=== PATIENT | female | born 1965 | race Caucasian/White ===

== ENCOUNTER 2018-01-30 16:11 | Inpatient (IN) | payer OTHER ==
[2018-01-30 17:25] VITALS: BMI 37.8
--- NOTE | 2018-01-30 20:17 | HP ---
Admission [facility] Chief Complaint: Seeking admission to Rehab Allergies/Adverse Reactions: Allergies Allergy/AdvReac Type Severity Reaction Status Date / Time No Known Allergies Allergy Verified 01/30/18 19:13 History of Present Illness: 52 years old female with a history of cocaine dependence is seeking admission to detox. Patient has been to previous Rehab. at [facility] in 2017. She has medical history of DM type 2, asthma, hypercholesterolemia, arthritis, kidney stones, depression, Hep. C and she is PPD positive. Reports more than 10 suicide attempts, last in 2006. Denies suicidal and homicidal ideation at this time. Patient is on methadone 160mg tablet oral daily at [facility]. Dose is yet to be confirmed by the nurse. Exam Limitations: No Limitations - Ebola screening Have you traveled outside of the country in the last 21 days: No Have you had contact with anyone from an Ebola affected area: No Have you been sick,other than usual withdrawal symptoms: No Do you have a fever: No - Review of Systems Constitutional: No Symptoms Reported EENT: reports: No Symptoms Reported, Dental Problems (has no teeth), Other ( uses prescription eye glasses) Respiratory: reports: No Symptoms reported Cardiac: reports: No Symptoms Reported GI: reports: No Symptoms Reported : reports: No Symptoms Reported Musculoskeletal: reports: No Symptoms Reported Integumentary: reports: No Symptoms Reported Neuro: reports: No Symptoms reported Endocrine: reports: No Symptoms Reported Hematology: reports: No Symptoms Reported Psychiatric: reports: No Sypmtoms Reported, Mood/Affect Appropiate, Orientated x3 Other Systems: Reviewed and Negative Patient History - Patient Medical History Hx Anemia: No Hx Asthma: Yes (Albuterol and singulair) Hx Chronic Obstructive Pulmonary Disease (COPD): Yes (Not on medication) Hx Cancer: Yes (Anal Ca - Not on medication) Hx Cardiac Disorders: No Hx Congestive Heart Failure: No Hx Hypertension: No Hx Hypercholesterolemia: Yes (Lipitor) HX Cerebrovascular Accident: No Hx Seizures: No Hx Diabetes: Yes (Metformin) Hx Gastrointestinal Disorders: No Hx Liver Disease: Yes (Hep. C) Hx Genitourinary Disorders: No Hx Sexually Transmitted Disorders: No Hx Renal Disease (ESRD): No Hx Thyroid Disease: No Hx Human Immunodeficiency Virus (HIV): No (Negative 2017) Hx Hepatitis C: Yes (Not treated) Hx Depression: Yes (Not on medication) Hx Suicide Attempt: Yes (Attempted 10 times. Denies suicidal ideation at this time.) Hx Bipolar Disorder: Yes Hx Schizophrenia: No Other Medical History: arthritis - Celebrex - Patient Surgical History Past Surgical History: Yes Hx Neurologic Surgery: No Hx Cataract Extraction: No Hx Cardiac Surgery: No Hx Lung Surgery: No Hx Breast Surgery: No Hx Breast Biopsy: No Hx Abdominal Surgery: No Hx Appendectomy: No Hx Cholecystectomy: No Hx Genitourinary Surgery: No Hx Section: Yes (1998) Hx Orthopedic Surgery: No Hx Hysterectomy: No Anesthesia Reaction: No - PPD History Previous Implant?: No (PPD positive) PPD to be Administered?: No - Reproductive History Patient is a Female of Child Bearing Age (11 -55 yrs old): Yes LMP comment: 6 years ago Patient : No - Smoking Cessation Smoking history: Current every day smoker Have you smoked in the past 12 months: Yes Aproximately how many cigarettes per day: 5 Hx Chewing Tobacco Use: No Initiated information on smoking cessation: Yes 'Breaking Loose' booklet given: 01/30/18 Family Disease History - Family Disease History Family Disease History: Diabetes: Father (HIV + - ), Mother, CA: Mother , Other: Grandparent (GM - Ca of throat), Father Admission Physical Exam [facility] - Vital Signs Vital Signs: Vital Signs - 24 hr 01/30/18 17:22 Temperature 98.8 F Pulse Rate 76 Respiratory 18 Rate Blood Pressure 140/78 - Physical General Appearance: Yes: No Apparent Distress, Appropriately Dressed, Moderate Distress HEENTM: Yes: EOMI, Normal Voice, YESSY Respiratory: Yes: Lungs Clear, Normal Breath Sounds, No Respiratory Distress Neck: Yes: Supple Breast: Yes: Breast Exam Deferred Cardiology: Yes: Regular Rhythm, Regular Rate, S1, S2 Abdominal: Yes: Normal Bowel Sounds, Soft Genitourinary: Yes: Within Normal Limits Back: Yes: Normal Inspection Musculoskeletal: Yes: Within Normal Limits Extremities: Yes: Normal Inspection Neurological: Yes: Within Normal Limits, Alert, Normal Mood/Affect Integumentary: Yes: Warm Lymphatic: Yes: Within Normal Limits - Diagnostic (1) Cocaine dependence, uncomplicated Current Visit: Yes Status: Chronic (2) Diabetes Current Visit: Yes Status: Chronic Qualifiers: Diabetes mellitus type: type 2 Diabetes mellitus complication status: with other specified complication (3) Asthma Current Visit: Yes Status: Acute Qualifiers: Asthma persistence: unspecified (4) Hep C w/o coma, chronic Current Visit: Yes Status: Chronic (5) Depression Current Visit: Yes Status: Chronic Qualifiers: Depression Type: unspecified Qualified Code(s): F32.9 - Major depressive disorder, single episode, unspecified (6) Anal cancer Current Visit: Yes Status: Chronic (7) Hypercholesteremia Current Visit: Yes Status: Chronic Cleared for Admission [facility] - Detox or Rehab [facility] Level of Care: Observation Bed Claeared for Rehab Admission: Yes [facility] Breath Alcohol Content Breath Alcohol Content: 0 Urine Pregancy Test - Result Urine Test Results: Negative- NO Line Present Urine Drug Screen - Results Drug Screen Negative: No Urine Drug Screen Results: FRACISCO-Cocaine, MTD-Methadone, TCA-Tricyclic Antidepress Inpatient Rehab Admission - Initial Determination Are CD services needed?: Yes Free of communicable disease: Yes Not in need of hospitalization: Yes - Rehab Admission Criteria Previous failed treatment: Yes Poor recovery environment: Yes Comorbidities: Yes Lacks judgement: No Patient is meeting Inpatient Rehab admission criteria:: Yes
[2018-01-30] MEDS ORDERED: IBUPROFEN 400 MG TABLET (FP) PO PRN (20:47)
[2018-01-30] MEDS ORDERED: NICOTINE POLACRILEX 2 MG GUM BC PRN (20:47)
[2018-01-30] MEDS ORDERED: MENTHOL/PHENOL 1 EACH UD MM PRN (20:47)
[2018-01-30] MEDS ORDERED: MAGNESIUM HYDROX 2400MG/30ML ORAL SUSPENSION 30 ML CUP PO PRN (20:47)
[2018-01-30] MEDS ORDERED: MAGNESIUM CITRATE 300 ML BOTTLE PO PRN (20:47)
[2018-01-30] MEDS ORDERED: guaiFENesin/D-METHORPHAN HB 10 ML UNIT-DOSE CUPS PO PRN (20:47)
[2018-01-30] MEDS: MONTELUKAST NA 10 MG TABLET PO SCH (23:48)
[2018-01-30] MEDS: ATORVASTATIN CA 20 MG TABLET (FP) PO SCH (23:48)
[2018-01-30] MEDS: THIAMINE HCL 100 MG TABLET (FP) PO SCH (23:49)
[2018-01-30] MEDS: metFORMIN HCL 500 MG TABLET (FP) PO SCH (23:50)
[2018-01-30] MEDS: CELECOXIB 200 MG CAPSULE PO SCH (23:50)
[2018-01-31 02:19] LABS: URINE APPEARANCE CLOUDY; URINE BILIRUBIN NEGATIVE (<2.0 mg/dL); URINE COLOR YELLOW; URINE GLUCOSE (UA) NEGATIVE (NEGATIVE); URINE KETONE NEGATIVE (NEGATIVE); URINE NITRITE NEGATIVE (NEGATIVE); URINE UROBILINOGEN NEGATIVE mg/dL (0.2-1.0)
[2018-01-31 02:26] LABS: URINE LEUK ESTERASE 3+ (NEGATIVE); URINE PROTEIN 2+ (NEGATIVE)
[2018-01-31 02:30] LABS: EPI CELLS RARE /HPF (FEW); URINE BACTERIA RARE /hpf (NONE SEEN); URINE HYALINE CAST 7 /lpf; URINE MUCUS RARE
[2018-01-31] MEDS: metFORMIN HCL 500 MG TABLET (FP) PO SCH ×2 (06:54→16:48)
[2018-01-31] MEDS: ASPIRIN 81 MG CHEWABLE TABLETS PO SCH (10:24)
[2018-01-31] MEDS: METHADONE HCL 40 MG DISPERSABLE TABLET PO SCH (10:24)
[2018-01-31] MEDS: NICOTINE 14 MG/24 HOURS TOPICAL PATCH TD SCH (10:25)
[2018-01-31] MEDS: PRENATAL VITAMINS W/ FOLIC ACID TABLET (FP) PO SCH (10:25)
[2018-01-31 10:40] LABS: HEMATOCRIT 35.1 % (32.4-45.2); HEMOGLOBIN 11.6 GM/dL (10.7-15.3); MCH 30.4 pg (25.7-33.7); MEAN PLT VOLUME 8.9 fl (7.5-11.1); PLATELET COUNT 234 K/MM3 (134-434); RBC 3.82 M/mm3 (3.60-5.2); RDW 14.4 % (11.6-15.6); WHITE BLOOD COUNT 6.4 K/mm3 (4.0-10.0)
--- NOTE | 2018-01-31 10:41 | EKG ---
Test Reason : Blood Pressure : / mmHG Vent. Rate : 064 BPM Atrial Rate : 064 BPM P-R Int : 168 ms QRS Dur : 096 ms QT Int : 404 ms P-R-T Axes : 023 052 -88 degrees QTc Int : 416 ms NORMAL SINUS RHYTHM T WAVE ABNORMALITY, CONSIDER ANTEROLATERAL ISCHEMIA ABNORMAL ECG NO PREVIOUS ECGS AVAILABLE Confirmed by MD Jason, Lauri ([id number]) on 01/31/2018 10:40:30 AM Referred By: Confirmed By:Lauri Gomez MD
[2018-01-31 10:52] LABS: CHLORIDE 111 mmol/L (98-107); POTASSIUM 4.3 mmol/L (3.5-5.1); SODIUM 146 mmol/L (136-145)
[2018-01-31 10:59] LABS: ALBUMIN 3.8 g/dl (3.4-5.0); ALK PHOS 157 U/L (45-117); ANION GAP 10 (8-16); BILIRUBIN,TOTAL 0.1 mg/dL (0.2-1.0); BLOOD UREA NITROGEN 19 mg/dL (7-18); CALCIUM 9.6 mg/dL (8.5-10.1); CO2 25 mmol/L (21-32); CREATININE 1.6 mg/dL (0.55-1.02); GLUCOSE,RANDOM 95 mg/dL (74-106); SGOT/AST 18 U/L (15-37); SGPT/ALT 16 U/L (12-78); TOT PROT 7.6 g/dl (6.4-8.2)
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
[2018-01-31] MEDS: CELECOXIB 200 MG CAPSULE PO SCH ×2 (13:12→21:44)
[2018-01-31] MEDS: THIAMINE HCL 100 MG TABLET (FP) PO SCH (21:44)
[2018-01-31] MEDS: ATORVASTATIN CA 20 MG TABLET (FP) PO SCH (21:44)
[2018-01-31] MEDS: MONTELUKAST NA 10 MG TABLET PO SCH (21:44)
[2018-01-31] MEDS: SUVOREXANT 10 MG TABLET PO PRN (21:45)
[2018-02-01] MEDS: METHADONE HCL 40 MG DISPERSABLE TABLET PO SCH (06:39)
[2018-02-01] MEDS: metFORMIN HCL 500 MG TABLET (FP) PO SCH ×2 (06:40→17:04)
[2018-02-01] MEDS: PRENATAL VITAMINS W/ FOLIC ACID TABLET (FP) PO SCH (10:29)
[2018-02-01] MEDS: NICOTINE 14 MG/24 HOURS TOPICAL PATCH TD SCH (10:30)
[2018-02-01] MEDS: ARIPiprazole 5 MG TABLET (FP) PO SCH (10:30)
[2018-02-01] MEDS: CELECOXIB 200 MG CAPSULE PO SCH ×2 (10:30→21:39)
[2018-02-01] MEDS: ASPIRIN 81 MG CHEWABLE TABLETS PO SCH (10:30)
[2018-02-01] MEDS: SERTRALINE HCL 50 MG TABLET (FP) PO SCH (10:30)
--- NOTE | 2018-02-01 11:11 | PN ---
[facility] Progress Note Note: Patient requesting singulair to be given in the morning. Also c/o itchy, dry feet. Vital Signs Temperature 98.3 F 02/01/18 07:12 Pulse Rate 74 02/01/18 07:12 Respiratory Rate 18 02/01/18 07:12 Blood Pressure 137/83 02/01/18 07:12 O2 Sat by Pulse Oximetry (%) Laboratory Tests 01/30/18 01/30/18 01/31/18 20:00 23:50 06:53 WBC RBC Hgb Hct MCV MCH MCHC RDW Plt Count MPV Sodium Potassium Chloride Carbon Dioxide Anion Gap BUN Creatinine Creat Clearance w eGFR POC Glucometer 101 95 Random Glucose Calcium Total Bilirubin AST ALT Alkaline Phosphatase Total Protein Albumin Urine Color Yellow Urine Appearance Cloudy Urine pH 5.0 Ur Specific [place] 1.024 Urine Protein 2+ H Urine Glucose (UA) Negative Urine Ketones Negative Urine Blood 2+ H Urine Nitrite Negative Urine Bilirubin Negative Urine Urobilinogen Negative Ur Leukocyte Esterase 3+ H Urine WBC (Auto) 181 Urine RBC (Auto) 73 Ur Epithelial Cells Rare Urine Bacteria Rare Hyaline Casts 7 Urine Mucus Rare 01/31/18 01/31/18 01/31/18 07:00 07:00 16:49 WBC 6.4 RBC 3.82 Hgb 11.6 Hct 35.1 MCV 92.0 MCH 30.4 MCHC 33.0 RDW 14.4 Plt Count 234 MPV 8.9 Sodium 146 H Potassium 4.3 Chloride 111 H Carbon Dioxide 25 Anion Gap 10 BUN 19 H Creatinine 1.6 H Creat Clearance w eGFR 33.59 POC Glucometer 102 Random Glucose 95 Calcium 9.6 Total Bilirubin 0.1 L AST 18 ALT 16 Alkaline Phosphatase 157 H Total Protein 7.6 Albumin 3.8 Urine Color Urine Appearance Urine pH Ur Specific [place] Urine Protein Urine Glucose (UA) Urine Ketones Urine Blood Urine Nitrite Urine Bilirubin Urine Urobilinogen Ur Leukocyte Esterase Urine WBC (Auto) Urine RBC (Auto) Ur Epithelial Cells Urine Bacteria Hyaline Casts Urine Mucus 02/01/18 06:39 WBC RBC Hgb Hct MCV MCH MCHC RDW Plt Count MPV Sodium Potassium Chloride Carbon Dioxide Anion Gap BUN Creatinine Creat Clearance w eGFR POC Glucometer 82 Random Glucose Calcium Total Bilirubin AST ALT Alkaline Phosphatase Total Protein Albumin Urine Color Urine Appearance Urine pH Ur Specific [place] Urine Protein Urine Glucose (UA) Urine Ketones Urine Blood Urine Nitrite Urine Bilirubin Urine Urobilinogen Ur Leukocyte Esterase Urine WBC (Auto) Urine RBC (Auto) Ur Epithelial Cells Urine Bacteria Hyaline Casts Urine Mucus Obj: Bilateral feet with dry cracked heels, +onchomycosis of toes nails and redness between toes. No open areas. A/P: Fungal rash of feet Medication schedule change Will order clotrimazole 0.1% BID change singulair to be given in the morning continue to monitor clinically
[2018-02-01] MEDS: THIAMINE HCL 100 MG TABLET (FP) PO SCH (21:39)
[2018-02-01] MEDS: SUVOREXANT 10 MG TABLET PO PRN (21:39)
[2018-02-01] MEDS: ATORVASTATIN CA 20 MG TABLET (FP) PO SCH (21:39)
[2018-02-01] MEDS: CLOTRIMAZOLE 1% CREAM 15 GM TUBE TP SCH (21:40)
[2018-02-02] MEDS: METHADONE HCL 40 MG DISPERSABLE TABLET PO SCH (06:37)
[2018-02-02] MEDS: metFORMIN HCL 500 MG TABLET (FP) PO SCH ×2 (06:39→16:50)
[2018-02-02] MEDS: P-EPHED 60MG/TRIPROLIDI 2.5MG TABLET PO PRN (06:40)
[2018-02-02] MEDS ORDERED: PT OWN MED DRAWER 7, Y5N ONE ×2 (08:36→10:41)
[2018-02-02] MEDS: CELECOXIB 200 MG CAPSULE PO SCH ×2 (10:13→21:42)
[2018-02-02] MEDS: SERTRALINE HCL 50 MG TABLET (FP) PO SCH (10:13)
[2018-02-02] MEDS: ASPIRIN 81 MG CHEWABLE TABLETS PO SCH (10:13)
[2018-02-02] MEDS: PRENATAL VITAMINS W/ FOLIC ACID TABLET (FP) PO SCH (10:13)
[2018-02-02] MEDS: MONTELUKAST NA 10 MG TABLET PO SCH (10:13)
[2018-02-02] MEDS: ARIPiprazole 5 MG TABLET (FP) PO SCH (10:13)
[2018-02-02] MEDS: CLOTRIMAZOLE 1% CREAM 15 GM TUBE TP SCH ×2 (10:15→21:43)
[2018-02-02] MEDS: NICOTINE 14 MG/24 HOURS TOPICAL PATCH TD SCH (10:16)
[2018-02-02] MEDS: ATORVASTATIN CA 20 MG TABLET (FP) PO SCH (21:42)
[2018-02-02] MEDS: SUVOREXANT 10 MG TABLET PO PRN (21:42)
[2018-02-02] MEDS: THIAMINE HCL 100 MG TABLET (FP) PO SCH (21:43)
[2018-02-03] MEDS: P-EPHED 60MG/TRIPROLIDI 2.5MG TABLET PO PRN ×2 (05:37→21:43)
[2018-02-03] MEDS: METHADONE HCL 40 MG DISPERSABLE TABLET PO SCH (05:40)
[2018-02-03] MEDS: metFORMIN HCL 500 MG TABLET (FP) PO SCH ×2 (08:05→17:09)
[2018-02-03] MEDS ORDERED: PT OWN MED DRAWER 7, Y5N ONE ×2 (09:25→10:47)
[2018-02-03] MEDS: PRENATAL VITAMINS W/ FOLIC ACID TABLET (FP) PO SCH (10:45)
[2018-02-03] MEDS: SERTRALINE HCL 50 MG TABLET (FP) PO SCH (10:45)
[2018-02-03] MEDS: CELECOXIB 200 MG CAPSULE PO SCH ×2 (10:45→21:39)
[2018-02-03] MEDS: CLOTRIMAZOLE 1% CREAM 15 GM TUBE TP SCH ×2 (10:45→22:02)
[2018-02-03] MEDS: MONTELUKAST NA 10 MG TABLET PO SCH (10:45)
[2018-02-03] MEDS: ASPIRIN 81 MG CHEWABLE TABLETS PO SCH (10:45)
[2018-02-03] MEDS: NICOTINE 14 MG/24 HOURS TOPICAL PATCH TD SCH (10:46)
[2018-02-03] MEDS: ARIPiprazole 5 MG TABLET (FP) PO SCH (12:40)
[2018-02-03] MEDS: THIAMINE HCL 100 MG TABLET (FP) PO SCH (21:39)
[2018-02-03] MEDS: ATORVASTATIN CA 20 MG TABLET (FP) PO SCH (21:39)
[2018-02-03] MEDS: SUVOREXANT 10 MG TABLET PO PRN (21:42)
[2018-02-04] MEDS: P-EPHED 60MG/TRIPROLIDI 2.5MG TABLET PO PRN (06:30)
[2018-02-04] MEDS: metFORMIN HCL 500 MG TABLET (FP) PO SCH ×2 (06:30→16:56)
[2018-02-04] MEDS: METHADONE HCL 40 MG DISPERSABLE TABLET PO SCH (06:31)
[2018-02-04] MEDS ORDERED: PT OWN MED DRAWER 7, Y5N ONE (08:48)
[2018-02-04] MEDS: PRENATAL VITAMINS W/ FOLIC ACID TABLET (FP) PO SCH (10:21)
[2018-02-04] MEDS: SERTRALINE HCL 50 MG TABLET (FP) PO SCH (10:21)
[2018-02-04] MEDS: MONTELUKAST NA 10 MG TABLET PO SCH (10:21)
[2018-02-04] MEDS: CELECOXIB 200 MG CAPSULE PO SCH ×2 (10:21→21:48)
[2018-02-04] MEDS: ARIPiprazole 5 MG TABLET (FP) PO SCH (10:21)
[2018-02-04] MEDS: NICOTINE 14 MG/24 HOURS TOPICAL PATCH TD SCH (10:21)
[2018-02-04] MEDS: CLOTRIMAZOLE 1% CREAM 15 GM TUBE TP SCH ×2 (10:22→21:49)
[2018-02-04] MEDS: ASPIRIN 81 MG CHEWABLE TABLETS PO SCH (10:22)
[2018-02-04] MEDS: ACETAMINOPHEN 325 MG TABLET (FP) PO PRN (15:27)
[2018-02-04] MEDS: THIAMINE HCL 100 MG TABLET (FP) PO SCH (21:48)
[2018-02-04] MEDS: ATORVASTATIN CA 20 MG TABLET (FP) PO SCH (21:48)
[2018-02-04] MEDS: MELATONIN 5 MG TABLETS PO PRN (21:48)
[2018-02-05] MEDS: METHADONE HCL 40 MG DISPERSABLE TABLET PO SCH (06:28)
[2018-02-05] MEDS: metFORMIN HCL 500 MG TABLET (FP) PO SCH ×2 (06:29→16:55)
[2018-02-05] MEDS: P-EPHED 60MG/TRIPROLIDI 2.5MG TABLET PO PRN (06:30)
[2018-02-05] MEDS ORDERED: PT OWN MED DRAWER 7, Y5N ONE (08:31)
[2018-02-05] MEDS: ASPIRIN 81 MG CHEWABLE TABLETS PO SCH (10:05)
[2018-02-05] MEDS: NICOTINE 14 MG/24 HOURS TOPICAL PATCH TD SCH (10:06)
[2018-02-05] MEDS: CLOTRIMAZOLE 1% CREAM 15 GM TUBE TP SCH ×2 (10:06→22:02)
[2018-02-05] MEDS: SERTRALINE HCL 50 MG TABLET (FP) PO SCH (10:06)
[2018-02-05] MEDS: MONTELUKAST NA 10 MG TABLET PO SCH (10:06)
[2018-02-05] MEDS: CELECOXIB 200 MG CAPSULE PO SCH ×2 (10:06→22:01)
[2018-02-05] MEDS: PRENATAL VITAMINS W/ FOLIC ACID TABLET (FP) PO SCH (10:06)
[2018-02-05] MEDS: ARIPiprazole 5 MG TABLET (FP) PO SCH (10:06)
[2018-02-05] MEDS: MELATONIN 5 MG TABLETS PO PRN (22:01)
[2018-02-05] MEDS: ATORVASTATIN CA 20 MG TABLET (FP) PO SCH (22:01)
[2018-02-05] MEDS: THIAMINE HCL 100 MG TABLET (FP) PO SCH (22:01)
[2018-02-06] MEDS: metFORMIN HCL 500 MG TABLET (FP) PO SCH ×2 (06:12→17:02)
[2018-02-06] MEDS: METHADONE HCL 40 MG DISPERSABLE TABLET PO SCH (06:12)
[2018-02-06] MEDS ORDERED: PT OWN MED DRAWER 7, Y5N ONE (08:47)
[2018-02-06] MEDS: ASPIRIN 81 MG CHEWABLE TABLETS PO SCH (10:46)
[2018-02-06] MEDS: CELECOXIB 200 MG CAPSULE PO SCH ×2 (10:47→21:31)
[2018-02-06] MEDS: PRENATAL VITAMINS W/ FOLIC ACID TABLET (FP) PO SCH (10:47)
[2018-02-06] MEDS: SERTRALINE HCL 50 MG TABLET (FP) PO SCH (10:47)
[2018-02-06] MEDS: MONTELUKAST NA 10 MG TABLET PO SCH (10:47)
[2018-02-06] MEDS: ARIPiprazole 5 MG TABLET (FP) PO SCH (10:47)
[2018-02-06] MEDS: NICOTINE 14 MG/24 HOURS TOPICAL PATCH TD SCH (10:48)
[2018-02-06] MEDS: CLOTRIMAZOLE 1% CREAM 15 GM TUBE TP SCH ×2 (10:48→21:32)
--- NOTE | 2018-02-06 14:06 | PN ---
[facility] Progress Note Note: Patient present with complaint of occasional itching of skin and feet. States it happens more at night. Vital Signs Temperature 98.3 F 02/06/18 07:02 Pulse Rate 71 02/06/18 07:02 Respiratory Rate 16 02/06/18 07:02 Blood Pressure 129/78 02/06/18 07:02 O2 Sat by Pulse Oximetry (%) Laboratory Tests 01/30/18 01/30/18 01/31/18 20:00 23:50 06:53 WBC RBC Hgb Hct MCV MCH MCHC RDW Plt Count MPV Sodium Potassium Chloride Carbon Dioxide Anion Gap BUN Creatinine Creat Clearance w eGFR POC Glucometer 101 95 Random Glucose Calcium Total Bilirubin AST ALT Alkaline Phosphatase Total Protein Albumin Urine Color Yellow Urine Appearance Cloudy Urine pH 5.0 Ur Specific [place] 1.024 Urine Protein 2+ H Urine Glucose (UA) Negative Urine Ketones Negative Urine Blood 2+ H Urine Nitrite Negative Urine Bilirubin Negative Urine Urobilinogen Negative Ur Leukocyte Esterase 3+ H Urine WBC (Auto) 181 Urine RBC (Auto) 73 Ur Epithelial Cells Rare Urine Bacteria Rare Hyaline Casts 7 Urine Mucus Rare RPR Titer 01/31/18 01/31/18 01/31/18 07:00 07:00 07:00 WBC 6.4 RBC 3.82 Hgb 11.6 Hct 35.1 MCV 92.0 MCH 30.4 MCHC 33.0 RDW 14.4 Plt Count 234 MPV 8.9 Sodium 146 H Potassium 4.3 Chloride 111 H Carbon Dioxide 25 Anion Gap 10 BUN 19 H Creatinine 1.6 H Creat Clearance w eGFR 33.59 POC Glucometer Random Glucose 95 Calcium 9.6 Total Bilirubin 0.1 L AST 18 ALT 16 Alkaline Phosphatase 157 H Total Protein 7.6 Albumin 3.8 Urine Color Urine Appearance Urine pH Ur Specific [place] Urine Protein Urine Glucose (UA) Urine Ketones Urine Blood Urine Nitrite Urine Bilirubin Urine Urobilinogen Ur Leukocyte Esterase Urine WBC (Auto) Urine RBC (Auto) Ur Epithelial Cells Urine Bacteria Hyaline Casts Urine Mucus RPR Titer Nonreactive 01/31/18 02/01/18 02/01/18 16:49 06:39 17:04 WBC RBC Hgb Hct MCV MCH MCHC RDW Plt Count MPV Sodium Potassium Chloride Carbon Dioxide Anion Gap BUN Creatinine Creat Clearance w eGFR POC Glucometer 102 82 94 Random Glucose Calcium Total Bilirubin AST ALT Alkaline Phosphatase Total Protein Albumin Urine Color Urine Appearance Urine pH Ur Specific [place] Urine Protein Urine Glucose (UA) Urine Ketones Urine Blood Urine Nitrite Urine Bilirubin Urine Urobilinogen Ur Leukocyte Esterase Urine WBC (Auto) Urine RBC (Auto) Ur Epithelial Cells Urine Bacteria Hyaline Casts Urine Mucus RPR Titer 02/02/18 02/02/18 02/03/18 06:36 16:52 05:39 WBC RBC Hgb Hct MCV MCH MCHC RDW Plt Count MPV Sodium Potassium Chloride Carbon Dioxide Anion Gap BUN Creatinine Creat Clearance w eGFR POC Glucometer 81 73 83 Random Glucose Calcium Total Bilirubin AST ALT Alkaline Phosphatase Total Protein Albumin Urine Color Urine Appearance Urine pH Ur Specific [place] Urine Protein Urine Glucose (UA) Urine Ketones Urine Blood Urine Nitrite Urine Bilirubin Urine Urobilinogen Ur Leukocyte Esterase Urine WBC (Auto) Urine RBC (Auto) Ur Epithelial Cells Urine Bacteria Hyaline Casts Urine Mucus RPR Titer 02/03/18 02/04/18 02/04/18 17:08 06:28 16:57 WBC RBC Hgb Hct MCV MCH MCHC RDW Plt Count MPV Sodium Potassium Chloride Carbon Dioxide Anion Gap BUN Creatinine Creat Clearance w eGFR POC Glucometer 104 83 115 Random Glucose Calcium Total Bilirubin AST ALT Alkaline Phosphatase Total Protein Albumin Urine Color Urine Appearance Urine pH Ur Specific [place] Urine Protein Urine Glucose (UA) Urine Ketones Urine Blood Urine Nitrite Urine Bilirubin Urine Urobilinogen Ur Leukocyte Esterase Urine WBC (Auto) Urine RBC (Auto) Ur Epithelial Cells Urine Bacteria Hyaline Casts Urine Mucus RPR Titer 02/05/18 02/05/18 02/06/18 06:27 16:55 06:11 WBC RBC Hgb Hct MCV MCH MCHC RDW Plt Count MPV Sodium Potassium Chloride Carbon Dioxide Anion Gap BUN Creatinine Creat Clearance w eGFR POC Glucometer 76 106 94 Random Glucose Calcium Total Bilirubin AST ALT Alkaline Phosphatase Total Protein Albumin Urine Color Urine Appearance Urine pH Ur Specific [place] Urine Protein Urine Glucose (UA) Urine Ketones Urine Blood Urine Nitrite Urine Bilirubin Urine Urobilinogen Ur Leukocyte Esterase Urine WBC (Auto) Urine RBC (Auto) Ur Epithelial Cells Urine Bacteria Hyaline Casts Urine Mucus RPR Titer Obj: Alert and oriented x 3. Skin warm and dry. Intact. No visible rashes or lesions. A/P Pruritis Will order Vistaril Prn and continue to monitor clinically.
[2018-02-06] MEDS: THIAMINE HCL 100 MG TABLET (FP) PO SCH (21:31)
[2018-02-06] MEDS: ATORVASTATIN CA 20 MG TABLET (FP) PO SCH (21:31)
[2018-02-06] MEDS: P-EPHED 60MG/TRIPROLIDI 2.5MG TABLET PO PRN (21:32)
[2018-02-06] MEDS: MELATONIN 5 MG TABLETS PO PRN (21:32)
[2018-02-07] MEDS: METHADONE HCL 40 MG DISPERSABLE TABLET PO SCH (06:17)
[2018-02-07] MEDS: metFORMIN HCL 500 MG TABLET (FP) PO SCH ×2 (06:18→16:54)
[2018-02-07] MEDS ORDERED: PT OWN MED DRAWER 7, Y5N ONE (09:05)
[2018-02-07] MEDS: ASPIRIN 81 MG CHEWABLE TABLETS PO SCH (10:26)
[2018-02-07] MEDS: ARIPiprazole 5 MG TABLET (FP) PO SCH (10:27)
[2018-02-07] MEDS: CELECOXIB 200 MG CAPSULE PO SCH ×2 (10:27→21:31)
[2018-02-07] MEDS: MONTELUKAST NA 10 MG TABLET PO SCH (10:27)
[2018-02-07] MEDS: SERTRALINE HCL 50 MG TABLET (FP) PO SCH (10:27)
[2018-02-07] MEDS: PRENATAL VITAMINS W/ FOLIC ACID TABLET (FP) PO SCH (10:27)
[2018-02-07] MEDS: NICOTINE 14 MG/24 HOURS TOPICAL PATCH TD SCH (10:27)
[2018-02-07] MEDS: MAG HYDROX/AL HYDROX/SIMETH 30 ML UNIT-DOSE CUP PO PRN (10:28)
[2018-02-07] MEDS: CLOTRIMAZOLE 1% CREAM 15 GM TUBE TP SCH ×2 (10:48→21:37)
[2018-02-07] MEDS: hydrOXYzine PAMOATE 25 MG CAPSULE (FP) PO PRN ×2 (11:01→21:33)
[2018-02-07] MEDS ORDERED: RANITIDINE HCL 150 MG TABLET (FP) PO ONE (13:30)
--- NOTE | 2018-02-07 15:09 | PN ---
Psychiatric Progress Note Vital Signs: Vital Signs Period Temp Pulse Resp BP Sys/Mcnally Pulse Ox Last 24 Hr 98.0 F 78 16-18 116/72 Date of Session: 02/07/18 Chief Complaint:: "depressed" HPI: patient is addressing cocaine,nicotine dependence comorbid Bipolar I disorder and PTSD. ROS: bronchial asthma, hyperlipidemia, type 2 diabetes mellitus, arthritis, hepatitis C, PPD+ and history of kidney stones, anal cancer and surgery for c- section in 1998 Current Medications: Active Medications Generic Name Dose Route Start Last Admin Trade Name Freq PRN Reason Stop Dose Admin Acetaminophen 650 mg 01/30/18 20:47 02/04/18 15:27 Tylenol - PO 650 mg Q4H PRN Administration FEVER Al Hydroxide/Mg Hydroxide 30 ml 01/30/18 20:47 02/07/18 10:28 Mylanta Oral Suspension - PO 30 ml Q6H PRN Administration DYSPEPSIA Aripiprazole 5 mg 02/01/18 10:00 02/07/18 10:27 Abilify PO 5 mg DAILY RUEL Administration Aspirin 81 mg 01/31/18 10:00 02/07/18 10:26 Asa - PO 81 mg DAILY RUEL Administration Atorvastatin Calcium 20 mg 01/30/18 22:00 02/06/18 21:31 Lipitor - PO 20 mg HS RUEL Administration Celecoxib 200 mg 01/30/18 22:00 02/07/18 10:27 Celebrex - PO 200 mg BID RUEL Administration Clotrimazole 1 applic 02/01/18 22:00 02/07/18 10:48 Lotrimin 1% Cream - TP Not Given BID RUEL Eucalyptus/Menthol/Phenol/Sorbitol 1 each 01/30/18 20:47 Cepastat Lozenge - MM Q4H PRN SORE THROAT Guaifenesin 10 ml 01/30/18 20:47 Robitussin Dm - PO Q6H PRN COUGH Hydroxyzine Pamoate 25 mg 02/06/18 14:02 02/07/18 11:01 Vistaril - PO 25 mg Q4H PRN Administration FOR ITCHING Loperamide HCl 4 mg 01/30/18 20:47 Imodium - PO Q6H PRN DIARRHEA Magnesium Citrate 300 ml 01/30/18 20:47 Citroma - PO Q48H PRN CONSTIPATION Magnesium Hydroxide 30 ml 01/30/18 20:47 Milk Of Magnesia - PO DAILY PRN CONSTIPATION Melatonin 5 mg 01/30/18 22:00 02/06/18 21:32 Melatonin PO 5 mg HS PRN Administration INSOMNIA Metformin HCl 1,000 mg 01/30/18 21:00 02/07/18 06:18 Glucophage - PO 1,000 mg BIDAC RUEL Administration Methadone HCl 160 mg 02/08/18 06:00 Dolophine - PO DAILY@0600 RUEL Montelukast Sodium 10 mg 02/02/18 10:00 02/07/18 10:27 Singulair - PO 10 mg DAILY RUEL Administration Nicotine 14 mg 01/31/18 10:00 02/07/18 10:27 Nicoderm Patch - TD Not Given DAILY RUEL Nicotine Polacrilex 2 mg 01/30/18 20:47 Nicorette Gum - BC Q2H PRN NICOTINE REPLACEMENT RX Multivit/Folic Acid/Iron 1 tab 01/31/18 10:00 02/07/18 10:27 Vitamins (Sjr) - PO 1 tab DAILY RUEL Administration Pseudoephedrine/Triprolidine 1 combo 01/30/18 20:47 02/06/18 21:32 Actifed - PO 1 combo TID PRN Administration NASAL CONGESTION Ranitidine HCl 150 mg 02/08/18 10:00 Zantac - PO DAILY RUEL Sertraline HCl 100 mg 02/07/18 15:07 Zoloft - PO DAILY RUEL Thiamine HCl 100 mg 01/30/18 22:00 02/06/18 21:31 Vitamin B1 - PO 100 mg HS RUEL Administration Medication(s) Change(s): increase Zoloft 100 mg po hs and add Wellbutrin 100 mg po daily. Current Side Effect: No Lab tests ordered: No Lab tests reviewed: Yes Provider note:: Reviewed the shart met with the patient, 's admission note appreciated, patient reports has been feeling depressed, sad and loweneergy level, fatigued all days, denies suicidal and homicildal thoughts. Reviewed her current medications, will increase Zoloft 100 mg po am, add Wellbutrin 100 mg po daily(side-effects/benefits disucssed with the patient ), psychoeducations and supports provided, continue to monitor progress. Total face to face time:: 25 Mental Status Exam - Mental Status Exam Alert and Oriented to: Time, Place, Person Cognitive Function: Good Patient Appearance: Well Groomed Mood: Depressed, Sad Affect: Mood Congruent Patient Behavior: Appropriate, Cooperative Speech Pattern: Clear, Appropriate Voice Loudness: Normal Thought Process: Intact, Goal Oriented Thought Disorder: Not Present Hallucinations: Denies Suicidal Ideation: Denies Homicidal Ideation: Denies Insight/Judgement: Fair Sleep: Fair Appetite: Fair Muscle strength/Tone: Normal Gait/Station: Normal Psychiatric Treatment Plan - Problem List (1) Cocaine dependence Current Visit: Yes (2) Substance-induced sleep disorder Current Visit: Yes (3) Bipolar disorder Current Visit: Yes (4) Nicotine dependence Current Visit: Yes (5) PTSD (post-traumatic stress disorder) Current Visit: Yes
[2018-02-07] MEDS ORDERED: RANITIDINE HCL 150 MG TABLET (FP) PO SCH (17:00)
[2018-02-07] MEDS ORDERED: ONDANSETRON *ODT* 4 MG TABLET SL PRN (17:06)
--- NOTE | 2018-02-07 17:08 | PN ---
S Progress Note Note: Patient c/o nausea. Patient refuse to eat breakfast related from the nausea. Current BGM 58. Denies any other symptoms. Vital Signs Temperature 98.0 F 02/07/18 07:14 Pulse Rate 78 02/07/18 07:14 Respiratory Rate 16 02/07/18 07:14 Blood Pressure 116/72 02/07/18 07:14 O2 Sat by Pulse Oximetry (%) Plan: Zofran PRN Increase fluids Provide patient with orange juice repeat BGM in an hour Continue to monitor
[2018-02-07] MEDS: THIAMINE HCL 100 MG TABLET (FP) PO SCH (21:31)
[2018-02-07] MEDS: ATORVASTATIN CA 20 MG TABLET (FP) PO SCH (21:31)
[2018-02-07] MEDS: MELATONIN 5 MG TABLETS PO PRN (21:32)
[2018-02-08] MEDS: MAG HYDROX/AL HYDROX/SIMETH 30 ML UNIT-DOSE CUP PO PRN (00:51)
[2018-02-08] MEDS: LOPERAMIDE HCL 2 MG CAPSULE PO PRN ×2 (00:51→20:23)
[2018-02-08] MEDS: METHADONE HCL 40 MG DISPERSABLE TABLET PO SCH (06:31)
[2018-02-08] MEDS: P-EPHED 60MG/TRIPROLIDI 2.5MG TABLET PO PRN (06:32)
[2018-02-08] MEDS: metFORMIN HCL 500 MG TABLET (FP) PO SCH ×2 (06:32→16:56)
[2018-02-08] MEDS ORDERED: PT OWN MED DRAWER 7, Y5N ONE ×2 (08:45→10:29)
[2018-02-08] MEDS: MONTELUKAST NA 10 MG TABLET PO SCH (10:26)
[2018-02-08] MEDS: SERTRALINE HCL 50 MG TABLET (FP) PO SCH (10:26)
[2018-02-08] MEDS: CELECOXIB 200 MG CAPSULE PO SCH ×2 (10:26→21:27)
[2018-02-08] MEDS: ASPIRIN 81 MG CHEWABLE TABLETS PO SCH (10:26)
[2018-02-08] MEDS: RANITIDINE HCL 150 MG TABLET (FP) PO SCH (10:26)
[2018-02-08] MEDS: ARIPiprazole 5 MG TABLET (FP) PO SCH (10:27)
[2018-02-08] MEDS: buPROPion HCL 100 MG TABLET PO SCH (10:27)
[2018-02-08] MEDS: PRENATAL VITAMINS W/ FOLIC ACID TABLET (FP) PO SCH (10:28)
[2018-02-08] MEDS: NICOTINE 14 MG/24 HOURS TOPICAL PATCH TD SCH (10:28)
[2018-02-08] MEDS: CLOTRIMAZOLE 1% CREAM 15 GM TUBE TP SCH ×2 (10:28→21:28)
[2018-02-08 14:17] LABS: URINE APPEARANCE CLOUDY; URINE BILIRUBIN NEGATIVE (<2.0 mg/dL); URINE COLOR YELLOW; URINE GLUCOSE (UA) NEGATIVE (NEGATIVE); URINE KETONE NEGATIVE (NEGATIVE); URINE NITRITE NEGATIVE (NEGATIVE); URINE UROBILINOGEN NEGATIVE mg/dL (0.2-1.0)
[2018-02-08 14:40] LABS: URINE LEUK ESTERASE 2+ (NEGATIVE); URINE PROTEIN 1+ (NEGATIVE)
[2018-02-08 14:44] LABS: EPI CELLS RARE /HPF (FEW); URINE MUCUS RARE
[2018-02-08] MEDS: ATORVASTATIN CA 20 MG TABLET (FP) PO SCH (21:27)
[2018-02-08] MEDS: MELATONIN 5 MG TABLETS PO PRN (21:27)
[2018-02-08] MEDS: THIAMINE HCL 100 MG TABLET (FP) PO SCH (21:27)
[2018-02-09] MEDS: METHADONE HCL 40 MG DISPERSABLE TABLET PO SCH (06:25)
[2018-02-09] MEDS: P-EPHED 60MG/TRIPROLIDI 2.5MG TABLET PO PRN (06:26)
[2018-02-09] MEDS: metFORMIN HCL 500 MG TABLET (FP) PO SCH ×2 (06:27→17:06)
[2018-02-09] MEDS ORDERED: DIPHENOXYLATE 2.5/ATROPINE.025 1 COMBO TABLET PO ONE (07:31)
--- NOTE | 2018-02-09 07:34 | PN ---
S Progress Note Note: Patient reports diarrhea more than 5 times this morning. Lomotil oral combo ordered.
[2018-02-09] MEDS ORDERED: PT OWN MED DRAWER 7, Y5N ONE (09:09)
[2018-02-09] MEDS: buPROPion HCL 100 MG TABLET PO SCH (10:17)
[2018-02-09] MEDS: SERTRALINE HCL 50 MG TABLET (FP) PO SCH (10:17)
[2018-02-09] MEDS: RANITIDINE HCL 150 MG TABLET (FP) PO SCH (10:17)
[2018-02-09] MEDS: PRENATAL VITAMINS W/ FOLIC ACID TABLET (FP) PO SCH (10:17)
[2018-02-09] MEDS: NICOTINE 14 MG/24 HOURS TOPICAL PATCH TD SCH (10:17)
[2018-02-09] MEDS: ASPIRIN 81 MG CHEWABLE TABLETS PO SCH (10:17)
[2018-02-09] MEDS: CELECOXIB 200 MG CAPSULE PO SCH ×2 (10:17→21:37)
[2018-02-09] MEDS: MONTELUKAST NA 10 MG TABLET PO SCH (10:17)
[2018-02-09] MEDS: ARIPiprazole 5 MG TABLET (FP) PO SCH (10:17)
[2018-02-09] MEDS: CLOTRIMAZOLE 1% CREAM 15 GM TUBE TP SCH ×2 (10:18→21:38)
[2018-02-09] MEDS ORDERED: DIPHENOXYLATE 2.5/ATROPINE.025 1 COMBO TABLET PO PRN (13:34)
--- NOTE | 2018-02-09 13:35 | PN ---
[facility] Progress Note Note: Vital Signs Temperature 98.3 F 02/09/18 07:20 Pulse Rate 72 02/09/18 07:20 Respiratory Rate 18 02/09/18 07:20 Blood Pressure 144/80 02/09/18 07:20 O2 Sat by Pulse Oximetry (%) Laboratory Last Values WBC 6.4 K/mm3 (4.0-10.0) 01/31/18 07:00 RBC 3.82 M/mm3 (3.60-5.2) 01/31/18 07:00 Hgb 11.6 GM/dL (10.7-15.3) 01/31/18 07:00 Hct 35.1 % (32.4-45.2) 01/31/18 07:00 MCV 92.0 fl (80-96) 01/31/18 07:00 MCH 30.4 pg (25.7-33.7) 01/31/18 07:00 MCHC 33.0 g/dl (32.0-36.0) 01/31/18 07:00 RDW 14.4 % (11.6-15.6) 01/31/18 07:00 Plt Count 234 K/MM3 (134-434) 01/31/18 07:00 MPV 8.9 fl (7.5-11.1) 01/31/18 07:00 Sodium 146 mmol/L (136-145) H 01/31/18 07:00 Potassium 4.3 mmol/L (3.5-5.1) 01/31/18 07:00 Chloride 111 mmol/L (98-107) H 01/31/18 07:00 Carbon Dioxide 25 mmol/L (21-32) 01/31/18 07:00 Anion Gap 10 (8-16) 01/31/18 07:00 BUN 19 mg/dL (7-18) H 01/31/18 07:00 Creatinine 1.6 mg/dL (0.55-1.02) H 01/31/18 07:00 Creat Clearance w eGFR 33.59 (>60) 01/31/18 07:00 POC Glucometer 82 UNITS (80-120) 02/09/18 06:24 Random Glucose 95 mg/dL (74-106) 01/31/18 07:00 Calcium 9.6 mg/dL (8.5-10.1) 01/31/18 07:00 Total Bilirubin 0.1 mg/dL (0.2-1.0) L 01/31/18 07:00 AST 18 U/L (15-37) 01/31/18 07:00 ALT 16 U/L (12-78) 01/31/18 07:00 Alkaline Phosphatase 157 U/L (45-117) H 01/31/18 07:00 Total Protein 7.6 g/dl (6.4-8.2) 01/31/18 07:00 Albumin 3.8 g/dl (3.4-5.0) 01/31/18 07:00 Urine Color Yellow 02/08/18 11:00 Urine Appearance Cloudy 02/08/18 11:00 Urine pH 5.0 (5.0-8.0) 02/08/18 11:00 Ur Specific Milnor 1.020 (1.001-1.035) 02/08/18 11:00 Urine Protein 1+ (NEGATIVE) H 02/08/18 11:00 Urine Glucose (UA) Negative (NEGATIVE) 02/08/18 11:00 Urine Ketones Negative (NEGATIVE) 02/08/18 11:00 Urine Blood 2+ (NEGATIVE) H 02/08/18 11:00 Urine Nitrite Negative (NEGATIVE) 02/08/18 11:00 Urine Bilirubin Negative (<2.0 mg/dL) 02/08/18 11:00 Urine Urobilinogen Negative mg/dL (0.2-1.0) 02/08/18 11:00 Ur Leukocyte Esterase 2+ (NEGATIVE) H 02/08/18 11:00 Urine WBC (Auto) 155 /hpf (3-5) 02/08/18 11:00 Urine RBC (Auto) 43 /hpf (0-3) 02/08/18 11:00 Ur Epithelial Cells Rare /HPF (FEW) 02/08/18 11:00 Urine Bacteria Rare /hpf (NONE SEEN) 01/30/18 20:00 Hyaline Casts 7 /lpf 01/30/18 20:00 Urine Mucus Rare 02/08/18 11:00 RPR Titer Nonreactive (NONREACTIVE) 01/31/18 07:00 Patient c/o of watery diarrhea x 3 days with no relief with immodium. C/O of dry itchy skin. Denies CP, SOB, abdominal tenderness. Obj: Patient AOx3, in no apparent distress Normal HR and Rhythm Skin warm and dry. Ambulating within unit with rollator BS x 4, No tenderness, or guarding A/P: Will order one time lomotil [place] soap Eucerin Top Increase fluids continue to monitor clinically
[2018-02-09] MEDS: MINERAL OIL/PETROLAT/WATER TOPICAL CREAM 113 GM JAR TP SCH (14:00)
[2018-02-09] MEDS: THIAMINE HCL 100 MG TABLET (FP) PO SCH (21:37)
[2018-02-09] MEDS: ATORVASTATIN CA 20 MG TABLET (FP) PO SCH (21:37)
[2018-02-09] MEDS: MELATONIN 5 MG TABLETS PO PRN (21:37)
[2018-02-10] MEDS: METHADONE HCL 40 MG DISPERSABLE TABLET PO SCH (06:17)
[2018-02-10] MEDS: metFORMIN HCL 500 MG TABLET (FP) PO SCH ×2 (06:18→16:55)
[2018-02-10] MEDS ORDERED: PT OWN MED DRAWER 7, Y5N ONE ×2 (08:41→23:10)
[2018-02-10] MEDS: RANITIDINE HCL 150 MG TABLET (FP) PO SCH (10:28)
[2018-02-10] MEDS: PRENATAL VITAMINS W/ FOLIC ACID TABLET (FP) PO SCH (10:28)
[2018-02-10] MEDS: SERTRALINE HCL 50 MG TABLET (FP) PO SCH (10:29)
[2018-02-10] MEDS: MONTELUKAST NA 10 MG TABLET PO SCH (10:29)
[2018-02-10] MEDS: ASPIRIN 81 MG CHEWABLE TABLETS PO SCH (10:29)
[2018-02-10] MEDS: CELECOXIB 200 MG CAPSULE PO SCH ×2 (10:29→21:34)
[2018-02-10] MEDS: NICOTINE 14 MG/24 HOURS TOPICAL PATCH TD SCH (10:30)
[2018-02-10] MEDS: ARIPiprazole 5 MG TABLET (FP) PO SCH (10:30)
[2018-02-10] MEDS: buPROPion HCL 100 MG TABLET PO SCH (10:30)
[2018-02-10] MEDS: MINERAL OIL/PETROLAT/WATER TOPICAL CREAM 113 GM JAR TP SCH (10:30)
[2018-02-10] MEDS: CLOTRIMAZOLE 1% CREAM 15 GM TUBE TP SCH ×2 (11:24→21:35)
[2018-02-10] MEDS ORDERED: COLLOIDAL OATMEAL 1 BAR EACH TP PRN (11:42)
[2018-02-10] MEDS: MELATONIN 5 MG TABLETS PO PRN (21:34)
[2018-02-10] MEDS: THIAMINE HCL 100 MG TABLET (FP) PO SCH (21:34)
[2018-02-10] MEDS: ATORVASTATIN CA 20 MG TABLET (FP) PO SCH (21:34)
[2018-02-11] MEDS: ACETAMINOPHEN 325 MG TABLET (FP) PO PRN (01:53)
[2018-02-11] MEDS: METHADONE HCL 40 MG DISPERSABLE TABLET PO SCH (06:21)
[2018-02-11] MEDS: metFORMIN HCL 500 MG TABLET (FP) PO SCH ×2 (06:23→16:56)
[2018-02-11] MEDS: CELECOXIB 200 MG CAPSULE PO SCH ×2 (10:23→21:27)
[2018-02-11] MEDS: ASPIRIN 81 MG CHEWABLE TABLETS PO SCH (10:23)
[2018-02-11] MEDS: PRENATAL VITAMINS W/ FOLIC ACID TABLET (FP) PO SCH (10:23)
[2018-02-11] MEDS: NICOTINE 14 MG/24 HOURS TOPICAL PATCH TD SCH (10:23)
[2018-02-11] MEDS: buPROPion HCL 100 MG TABLET PO SCH (10:23)
[2018-02-11] MEDS: RANITIDINE HCL 150 MG TABLET (FP) PO SCH (10:24)
[2018-02-11] MEDS: MONTELUKAST NA 10 MG TABLET PO SCH (10:24)
[2018-02-11] MEDS: SERTRALINE HCL 50 MG TABLET (FP) PO SCH (10:24)
[2018-02-11] MEDS: ARIPiprazole 5 MG TABLET (FP) PO SCH (10:24)
[2018-02-11] MEDS: CLOTRIMAZOLE 1% CREAM 15 GM TUBE TP SCH ×2 (10:26→21:28)
[2018-02-11] MEDS: MINERAL OIL/PETROLAT/WATER TOPICAL CREAM 113 GM JAR TP SCH (10:26)
[2018-02-11] MEDS ORDERED: DIPHENOXYLATE 2.5/ATROPINE.025 1 COMBO TABLET PO PRN (12:51)
[2018-02-11] MEDS: ATORVASTATIN CA 20 MG TABLET (FP) PO SCH (21:27)
[2018-02-11] MEDS: THIAMINE HCL 100 MG TABLET (FP) PO SCH (21:28)
[2018-02-11] MEDS: MELATONIN 5 MG TABLETS PO PRN (21:28)
[2018-02-12] MEDS: metFORMIN HCL 500 MG TABLET (FP) PO SCH ×2 (06:14→16:52)
[2018-02-12] MEDS: METHADONE HCL 40 MG DISPERSABLE TABLET PO SCH (06:15)
[2018-02-12] MEDS: SERTRALINE HCL 50 MG TABLET (FP) PO SCH (10:17)
[2018-02-12] MEDS: RANITIDINE HCL 150 MG TABLET (FP) PO SCH (10:17)
[2018-02-12] MEDS: CELECOXIB 200 MG CAPSULE PO SCH ×2 (10:17→21:25)
[2018-02-12] MEDS: PRENATAL VITAMINS W/ FOLIC ACID TABLET (FP) PO SCH (10:17)
[2018-02-12] MEDS: buPROPion HCL 100 MG TABLET PO SCH (10:17)
[2018-02-12] MEDS: ASPIRIN 81 MG CHEWABLE TABLETS PO SCH (10:17)
[2018-02-12] MEDS: MONTELUKAST NA 10 MG TABLET PO SCH (10:17)
[2018-02-12] MEDS: ARIPiprazole 5 MG TABLET (FP) PO SCH (10:17)
[2018-02-12] MEDS: NICOTINE 14 MG/24 HOURS TOPICAL PATCH TD SCH (10:18)
[2018-02-12] MEDS: CLOTRIMAZOLE 1% CREAM 15 GM TUBE TP SCH ×2 (10:19→21:28)
[2018-02-12] MEDS: MINERAL OIL/PETROLAT/WATER TOPICAL CREAM 113 GM JAR TP SCH (10:19)
[2018-02-12] MEDS: ACETAMINOPHEN 325 MG TABLET (FP) PO PRN (16:52)
[2018-02-12] MEDS: hydrOXYzine PAMOATE 25 MG CAPSULE (FP) PO PRN (18:01)
--- NOTE | 2018-02-12 20:15 | PN ---
Psychiatric Progress Note Vital Signs: Vital Signs Period Temp Pulse Resp BP Sys/Mcnally Pulse Ox Last 24 Hr 97.9 F 76 18-18 145/80 Date of Session: 02/12/18 Chief Complaint:: Discharge Note HPI: Patient addressing Cocaine Dependence comorbid with Opioid Dependence on Agonost Therapy, Nicotine Dependence, Bipolar Disorder, PTSD, Substance-Induced Mood Disorder and Substance-Induced Sleep Disorder ROS: Asthma, Hep C, DM, HLD, Anal cancer Current Medications: Active Medications Generic Name Dose Route Start Last Admin Trade Name Freq PRN Reason Stop Dose Admin Acetaminophen 650 mg 01/30/18 20:47 02/12/18 16:52 Tylenol - PO 650 mg Q4H PRN Administration FEVER Al Hydroxide/Mg Hydroxide 30 ml 01/30/18 20:47 02/08/18 00:51 Mylanta Oral Suspension - PO 30 ml Q6H PRN Administration DYSPEPSIA Aripiprazole 5 mg 02/01/18 10:00 02/12/18 10:17 Abilify PO 5 mg DAILY RUEL Administration Aspirin 81 mg 01/31/18 10:00 02/12/18 10:17 Asa - PO 81 mg DAILY RUEL Administration Atorvastatin Calcium 20 mg 01/30/18 22:00 02/11/18 21:27 Lipitor - PO 20 mg HS RUEL Administration Bupropion HCl 100 mg 02/08/18 10:00 02/12/18 10:17 Wellbutrin - PO 100 mg DAILY RUEL Administration Celecoxib 200 mg 01/30/18 22:00 02/12/18 10:17 Celebrex - PO 200 mg BID RUEL Administration Clotrimazole 1 applic 02/01/18 22:00 02/12/18 10:19 Lotrimin 1% Cream - TP Not Given BID RUEL Colloidal Oatmeal 1 applic 02/10/18 11:42 02/10/18 15:54 Aveeno Soap - TP 1 bar DAILY PRN Administration HYGEINE Diphenoxylate HCl/Atropine 1 combo 02/11/18 12:51 Lomotil - PO 02/14/18 12:50 Q8H PRN DIARRHEA Eucalyptus/Menthol/Phenol/Sorbitol 1 each 01/30/18 20:47 Cepastat Lozenge - MM Q4H PRN SORE THROAT Guaifenesin 10 ml 01/30/18 20:47 Robitussin Dm - PO Q6H PRN COUGH Hydroxyzine Pamoate 25 mg 02/06/18 14:02 02/12/18 18:01 Vistaril - PO 25 mg Q4H PRN Administration FOR ITCHING Magnesium Citrate 300 ml 01/30/18 20:47 Citroma - PO Q48H PRN CONSTIPATION Magnesium Hydroxide 30 ml 01/30/18 20:47 Milk Of Magnesia - PO DAILY PRN CONSTIPATION Melatonin 5 mg 01/30/18 22:00 02/11/18 21:28 Melatonin PO 5 mg HS PRN Administration INSOMNIA Metformin HCl 1,000 mg 01/30/18 21:00 02/12/18 16:52 Glucophage - PO 1,000 mg BIDAC RUEL Administration Methadone HCl 160 mg 02/08/18 06:00 02/12/18 06:15 Dolophine - PO 160 mg DAILY@0600 RUEL Administration Montelukast Sodium 10 mg 02/02/18 10:00 02/12/18 10:17 Singulair - PO 10 mg DAILY RUEL Administration Multi-Ingredient Lotion 1 applic 02/09/18 13:45 02/12/18 10:19 Eucerin (Small Jar) - TP Not Given DAILY RUEL Nicotine 14 mg 01/31/18 10:00 02/12/18 10:18 Nicoderm Patch - TD Not Given DAILY RUEL Nicotine Polacrilex 2 mg 01/30/18 20:47 Nicorette Gum - BC Q2H PRN NICOTINE REPLACEMENT RX Ondansetron HCl 8 mg 02/07/18 17:06 02/07/18 17:37 Zofran Odt - SL 8 mg Q8H PRN Administration NAUSEA AND/OR VOMITING Multivit/Folic Acid/Iron 1 tab 01/31/18 10:00 02/12/18 10:17 Vitamins (Sjr) - PO 1 tab DAILY RUEL Administration Pseudoephedrine/Triprolidine 1 combo 01/30/18 20:47 02/09/18 06:26 Actifed - PO 1 combo TID PRN Administration NASAL CONGESTION Ranitidine HCl 150 mg 02/08/18 10:00 02/12/18 10:17 Zantac - PO 150 mg DAILY RUEL Administration Sertraline HCl 100 mg 02/07/18 15:07 02/12/18 10:17 Zoloft - PO 100 mg DAILY RUEL Administration Thiamine HCl 100 mg 01/30/18 22:00 02/11/18 21:28 Vitamin B1 - PO 100 mg HS RUEL Administration Current Side Effect: No Lab tests ordered: Yes Lab tests reviewed: Yes Provider note:: Patient will complete this program on 02/13/18. She has met her treatment goals and will continue to address her issues in outpatient at [facility]. 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 She responded well to Zoloft 100 mg po daily, Abilify 5 mg po daily and Wellbutrin 100 mg po daily. Scripts for 30 days supply of these medications will be electronically transmitted to Pharmacy at [address] [place] [address]. She is stable for discharge on 02/13/18 Total face to face time:: 35 Psychiatric Treatment Plan - Problem List (1) Cocaine dependence Current Visit: Yes (2) Nicotine dependence Current Visit: Yes (3) Bipolar disorder Current Visit: Yes (4) PTSD (post-traumatic stress disorder) Current Visit: Yes (5) Substance induced mood disorder Current Visit: Yes (6) Substance-induced sleep disorder Current Visit: Yes (7) Asthma Current Visit: Yes Qualifiers: Asthma persistence: unspecified (8) Anal cancer Current Visit: Yes (9) Diabetes Current Visit: Yes Qualifiers: Diabetes mellitus type: type 2 Diabetes mellitus complication status: with other specified complication (10) Hep C w/o coma, chronic Current Visit: Yes (11) Hypercholesteremia Current Visit: Yes Initial treatment plan: Patient will be discharged tomorrow and referred to [facility] for outpatient Treatment
[2018-02-12] MEDS: THIAMINE HCL 100 MG TABLET (FP) PO SCH (21:25)
[2018-02-12] MEDS: ATORVASTATIN CA 20 MG TABLET (FP) PO SCH (21:25)
[2018-02-12] MEDS: MELATONIN 5 MG TABLETS PO PRN (21:26)
[2018-02-13] MEDS: MAG HYDROX/AL HYDROX/SIMETH 30 ML UNIT-DOSE CUP PO PRN (05:18)
[2018-02-13] MEDS: METHADONE HCL 40 MG DISPERSABLE TABLET PO SCH (06:10)
[2018-02-13] MEDS: metFORMIN HCL 500 MG TABLET (FP) PO SCH (06:12)
[2018-02-13 07:07] VITALS: BP 143/81; PULSE 80; TEMP 98.6
[2018-02-13] MEDS ORDERED: PT OWN MED DRAWER 7, Y5N ONE (08:27)
[2018-02-13] MEDS: ASPIRIN 81 MG CHEWABLE TABLETS PO SCH (09:46)
[2018-02-13] MEDS: CLOTRIMAZOLE 1% CREAM 15 GM TUBE TP SCH (09:46)
[2018-02-13] MEDS: MINERAL OIL/PETROLAT/WATER TOPICAL CREAM 113 GM JAR TP SCH (09:46)
[2018-02-13] MEDS: ARIPiprazole 5 MG TABLET (FP) PO SCH (09:47)
[2018-02-13] MEDS: CELECOXIB 200 MG CAPSULE PO SCH (09:47)
[2018-02-13] MEDS: RANITIDINE HCL 150 MG TABLET (FP) PO SCH (09:47)
[2018-02-13] MEDS: SERTRALINE HCL 50 MG TABLET (FP) PO SCH (09:47)
[2018-02-13] MEDS: NICOTINE 14 MG/24 HOURS TOPICAL PATCH TD SCH (09:47)
[2018-02-13] MEDS: PRENATAL VITAMINS W/ FOLIC ACID TABLET (FP) PO SCH (09:47)
[2018-02-13] MEDS: buPROPion HCL 100 MG TABLET PO SCH (09:47)
[2018-02-13] MEDS: MONTELUKAST NA 10 MG TABLET PO SCH (09:47)
== END 2018-02-13 10:08 | disposition home or self-care (01) | DRG 772 ==
LOC: YASAS 16:11 → Y3E 20:53
PROVIDERS: ADMIT Psychiatry & Neurology Psychiatry; ATTEND Psychiatry & Neurology Psychiatry
PROC: HZ42ZZZ Group Counseling for Substance Abuse Treatment, Cognitive-Behavioral (ICD-10-PCS; principal; 2018-01-30)
DX: F11.20 Opioid dependence, uncomplicated (principal); F14.20 Cocaine dependence, uncomplicated; F17.210 Nicotine dependence, cigarettes, uncomplicated; F31.9 Bipolar disorder, unspecified; F43.10 Post-traumatic stress disorder, unspecified; F19.24 Other psychoactive substance dependence with psychoactive substance-induced mood disorder; F19.282 Other psychoactive substance dependence with psychoactive substance-induced sleep disorder; J45.909 Unspecified asthma, uncomplicated; B18.2 Chronic viral hepatitis C; E11.9 Type 2 diabetes mellitus without complications; Z79.84 Long term (current) use of oral hypoglycemic drugs; E78.5 Hyperlipidemia, unspecified; C21.0 Malignant neoplasm of anus, unspecified; B35.3 Tinea pedis
CPT/HCPCS: 36415; 71046-TC-FY; 80053; 81003; 81015; 82962; 85027; 86593; 93005; 93010; Q0162